=== PATIENT | male | born 1965 ===

== ENCOUNTER 2018-09-06 10:03 | Emergency (ER) | payer OTHER ==
[~2018-09-06] VITALS: Ht 170.2 cm; Wt 84.8 kg
[~2018-09-06 10:03] MED LIST: IBUPROFEN800 MG PO; KETO10TA2 PO; ORPH100T PO
[2018-09-06] MEDS ORDERED: ZANTAC150 M3 (10:15)
== END 2018-09-06 13:22 | disposition home or self-care (01) ==
LOC: ER 10:03
DX: N20.0 Calculus of kidney (principal); R10.31 Right lower quadrant pain

== ENCOUNTER → 2020-02-09 14:16 | Outpatient (CLI) | payer OTHER ==
[~2020-02-09 14:16] MED LIST changes: +ZANTAC150 M3
== END | disposition home or self-care (01) ==
LOC: RAD 14:16
PROVIDERS: ATTEND General Practice
DX: R06.02 Shortness of breath (principal); Z13.89 Encounter for screening for other disorder; Z13.220 Encounter for screening for lipoid disorders; Z11.3 Encounter for screening for infections with a predominantly sexual mode of transmission; Z12.11 Encounter for screening for malignant neoplasm of colon; Z12.5 Encounter for screening for malignant neoplasm of prostate

== ENCOUNTER 2021-12-17 15:57 | Emergency (ER) | payer OTHER ==
[~2021-12-17] VITALS: Ht 170.2 cm; Wt 88.5 kg
== END 2021-12-17 19:56 | disposition home or self-care (01) ==
LOC: ER 15:57
DX: I10 Essential (primary) hypertension (principal)

== ENCOUNTER 2021-12-19 12:09 | Emergency (ER) | payer OTHER ==
[~2021-12-19] VITALS: Ht 170.2 cm; Wt 88.5 kg
[2021-12-19] MEDS ORDERED: METOPROLOL SUCC50 MG PO (13:12)
[2021-12-19] MEDS ORDERED: LOSARTAN-HCTZ1 EAC1 PO (17:58)
== END 2021-12-19 18:11 | disposition home or self-care (01) ==
LOC: ER 12:09
DX: I10 Essential (primary) hypertension (principal)

== ENCOUNTER 2021-12-29 09:19 | Outpatient (CLI) | payer OTHER ==
[~2021-12-29 09:19] MED LIST changes: +LOSARTAN-HCTZ1 EAC1 PO; +METOPROLOL SUCC50 MG PO
== END 2021-12-29 09:34 | disposition home or self-care (01) ==
LOC: RAD 09:19
PROVIDERS: ATTEND General Practice
DX: R10.9 Unspecified abdominal pain (principal); R30.0 Dysuria; Z13.89 Encounter for screening for other disorder; I10 Essential (primary) hypertension; E78.5 Hyperlipidemia, unspecified; M54.2 Cervicalgia; R51.9 Headache, unspecified

== ENCOUNTER 2022-01-03 08:59 | Outpatient (CLI) | payer OTHER | END 2022-01-03 09:15 | disposition home or self-care (01) | LOC: SONOGRAMA 08:59 | PROVIDERS: ATTEND General Practice | DX: R10.9 Unspecified abdominal pain (principal); D51.9 Vitamin B12 deficiency anemia, unspecified; I10 Essential (primary) hypertension ==